=== PATIENT | female | born 1960 | race Caucasian/White ===

== ENCOUNTER 2018-02-13 13:32 | Emergency (ER) | payer BC ==
[~2018-02-13] VITALS: Ht 165.1 cm; Wt 54.0 kg
[2018-02-13] MEDS ORDERED: CEPHALEXIN500 M1 PO (14:07)
[2018-02-13 14:32] VITALS: BP 135/77
== END 2018-02-13 14:40 | disposition home or self-care (01) | DRG 605 ==
LOC: ED 13:32
DX: S61.532A Puncture wound without foreign body of left wrist, initial encounter (principal); F17.210 Nicotine dependence, cigarettes, uncomplicated; W26.8XXA Contact with other sharp object(s), not elsewhere classified, initial encounter